=== PATIENT | female | born 1965 | race Caucasian/White ===

== ENCOUNTER 2023-11-11 08:22 | Outpatient (CLI) | payer OTHER, SELFPAY ==
[2023-11-11] VITALS (8 sets, daily range): BP systolic 162–191; BP diastolic 94–110; PULSE 52–62; RESP 10–23; TEMP 36.7; O2SAT 98–100
--- NOTE | 2023-11-11 08:30 | DI.RAD.S_ITS ---
PROCEDURE: PAIN L/S TRANSFORAM INJECT ARNOLDO COMPARISON: None. INDICATIONS: Pain FINDINGS: Intraoperative fluoroscopic spot films were obtained during a L5-S1 bilateral transforaminal epidural injection. Iraan are appropriately positioned as labeled on the films. IMPRESSION: Fluoroscopic guidance Approved by: Que Khalil M.D. on 11/12/2023 at 16:14
[2023-11-11] MEDS: MIDAZOLAM 2 MG/2 ML VIAL 1 MG IV (09:10)
[2023-11-11] MEDS: DEXAMETHASONE 10 MG/ML VIAL 20 MG INJ (09:13)
[2023-11-11] MEDS: iopamidoL 15 ML VIAL 3 ML INJ (09:13)
--- NOTE | 2023-11-11 12:03 | P.PCN_ITS ---
Date/Time/Diagnoses Date of procedure: 11/11/23 Time of procedure: 08:30 Procedure Notes Physician: Hari Butler Total Fluoroscopy time (seconds): 38 Total sedation minutes: 15 Procedure in detail & Post-procedure care: Bilateral L5-S1 Transforaminal Epidural Steroid Injection Indications: Samra is presenting for treatment of lumbar radiculopathy with low back and leg pain. Preoperative diagnosis: Bilateral lumbar radiculopathy Postoperative diagnosis: Same Focused Examination: Ax3 Mood and affect are normal Vital Signs: VSS ASA: 2 Consent: Following review of allergies and potential side effects/complications, including, but not necessarily limited to, infection, allergic reaction, local tissue breakdown, stroke, temporary or permanent nerve injury, paralysis, and possible , the patient indicated that they understood and agreed to proceed.? An informed consent document was signed by the patient, witnessed by a nurse and placed in the patient's chart.? Additionally, other treatment options including medications and physical therapy were reviewed with the patient. All questions were answered. Site was then marked. Anesthesia: After review of previous anesthetic history and IV conscious sedation, the patient was deemed safe to proceed with today's procedure with IV conscious sedation. IV sedation was accomplished with midazolam 1 mg administered by the RN after order by Dr. Butler. Sedation was titrated to patient comfort during the course of the procedure. Patient remained responsive to all verbal commands. Position: Prone Monitoring: NIBP, Pulse oximetry, 3 lead EKG Needle used: 22ga,?5-inch spinal needle Contrast: Isovue 300M Injectate: 10 mg Dexamethasone mixed with 1% lidocaine 1 ml and Normal Saline 1 ml per site Technique: The skin was prepped with chloraprep and draped in a sterile fashion. Time out was performed as per protocol. Oxygen applied via NC. Skin and subcutaneous structures of the needle entry site were infiltrated with 3mL of lidocaine 1%. Under fluoroscopic guidance, using an ipsilateral oblique view,?a 22 gauge 5 inch needle was advanced to the base of the right L5? pedicle.? The needle was advanced to the superio-posterior aspect of the neural foramen under lateral view.? Oblique and AP views were rechecked. No paresthesias noted by the patient during needle placement. In AP view and utilizing real-time digital subtraction fluoroscopy, 2 ml contrast was slowly injected. Epidural spread was observed without evidence for intravascular nor intrathecal uptake. Contrast spread was seen craniocaudally. The above injectate was then administered without paresthesias and the needle was subsequently withdrawn. Skin and subcutaneous structures of the needle entry site were infiltrated with 3mL of lidocaine 1%. Under fluoroscopic guidance, using an ipsilateral oblique view,?a 22 gauge 5 inch needle was advanced to the base of the left L5?pedicle.? The needle was advanced to the superio-posterior aspect of the neural foramen under lateral view.? Oblique and AP views were rechecked. No paresthesias noted by the patient during needle placement. In AP view and utilizing real-time digital subtraction fluoroscopy, 2 ml contrast was slowly injected. There was evidence of possible vascular uptake, likely venous. Needle was repositioned and further contrast injection under digital subtraction was consistent with epidural spread without evidence for intravascular nor intrathecal uptake. The above injectate was then administered without paresthesias and the needle was subsequently withdrawn. Band-Aids applied to injection sites. EBL: less than 1 ml Complications: None Post Procedure: Patient was taken to the recovery and monitored. The patient was provided a Pain Log to continue to record the patient's response to the target- specific procedure prior to the patient's follow-up visit with the referring physician. Patient was stable upon discharge. Detailed post procedure instructions were provided. Patient was asked to call in the event of worsening pain, fever, weakness, numbness or bladder or bowel incontinence.
== END 2023-11-11 09:45 | disposition home or self-care (01) ==
LOC: RAD 08:23
PROVIDERS: PCP Family Medicine; Referring Provider Anesthesiology; Visit Provider Anesthesiology
DX: M54.16 Radiculopathy, lumbar region (principal)
CPT/HCPCS: 64483; 99152; J1100; J2250

== ENCOUNTER 2023-12-09 08:47 | Outpatient (CLI) | payer OTHER, SELFPAY ==
[2023-12-09] VITALS (8 sets, daily range): BP systolic 130–154; BP diastolic 82–93; PULSE 67–76; RESP 11–20; TEMP 36.7; O2SAT 98–100
[2023-12-09] MEDS: MIDAZOLAM 2 MG/2 ML VIAL 1 MG IV (09:30)
--- NOTE | 2023-12-09 09:30 | DI.RAD.S_ITS ---
PROCEDURE: PAIN L INTERLAMINAR/CAUDAL INJ INDICATIONS: Lumbar Radiculopathy COMPARISON: None. FINDINGS: Fluoroscopic spot filming was performed to verify placement of spinal needles at the L5-S1 level(s), as labeled on the films. Appropriate location(s) of the needle tip(s) was confirmed by injection of iodinated contrast. IMPRESSION: Fluoro guidance was provided intraoperatively for L5-S1 interlaminar epidural steroid injection performed by the ordering physician. Dictated by: Chuck Martinez M.D. on 12/09/2023 at 11:34 Approved by: Chuck Martinez M.D. on 12/09/2023 at 11:34
[2023-12-09] MEDS: DEXAMETHASONE 10 MG/ML VIAL INJ (09:33)
[2023-12-09] MEDS: iopamidoL 15 ML VIAL 3 ML INJ (09:34)
--- NOTE | 2023-12-09 12:21 | P.PCN_ITS ---
Date/Time/Diagnoses Date of procedure: 12/09/23 Time of procedure: 09:30 Procedure Notes Physician: Hari Butler Total Fluoroscopy time (seconds): 14 Total sedation minutes: 10 Procedure in detail & Post-procedure care: L5-S1 Interlaminar Epidural Steroid Injection Indications: Samra is presenting for treatment of lumbar radiculopathy with low back and leg pain. Preoperative diagnosis: Lumbar radiculopathy Postoperative diagnosis: Same Focused Examination: Ax3 Mood and affect are normal Vital Signs: VSS ASA: 2 Consent: Following review of allergies and potential side effects/complications, including, but not necessarily limited to, infection, allergic reaction, local tissue breakdown, stroke, temporary or permanent nerve injury, paralysis, and possible , the patient indicated that they understood and agreed to proceed.? An informed consent document was signed by the patient, witnessed by a nurse and placed in the patient's chart.? Additionally, other treatment options including medications and physical therapy were reviewed with the patient. All questions were answered. Site was then marked. Anesthesia: After review of previous anesthetic history and IV conscious sedation, the patient was deemed safe to proceed with today's procedure with IV conscious sedation. IV sedation was accomplished with midazolam 1 mg administered by the RN after order by Dr. Butler. Sedation was titrated to patient comfort during the course of the procedure. Patient remained responsive to all verbal commands. Position: Prone Monitoring: NIBP, Pulse oximetry, 3 lead EKG Needle used: 18 G 3.5? Tuohy Contrast: Isovue 300M Injectate: Dexamethasone 10 mg with 1% lidocaine 2 mL Technique: The skin was prepped with chloraprep and then draped in a sterile fashion. Time out was performed as per protocol. Oxygen applied via NC. Skin and subcutaneous structures of the needle entry site was then infiltrated with 3 mL of lidocaine 1%. Under AP, lateral and contralateral oblique fluoroscopic control, the Tuohy needle was guided into the L5-S1 epidural space. The space was accessed with loss of resistance technique. Isovue 300M was then injected and the spread was consistent with the epidural space. There was no evidence for intravascular or intrathecal uptake. After negative aspiration, the above- mentioned injectate was then slowly administered and the needle withdrawn. The patient expressed no unusual discomfort or paresthesias during the injection. Band-Aids applied to injection sites. EBL: less than 1 ml Complications: None Post Procedure: Patient was taken to the recovery and monitored. The patient was provided a Pain Log to continue to record the patient's response to the target- specific procedure prior to the patient's follow-up visit with the referring physician. Patient was stable upon discharge. Detailed post procedure instructions were provided. Patient was asked to call in the event of worsening pain, fever, weakness, numbness or bladder or bowel incontinence.
== END 2023-12-09 10:00 | disposition home or self-care (01) ==
LOC: RAD 08:48
PROVIDERS: PCP Nurse Practitioner; Referring Provider Anesthesiology; Visit Provider Anesthesiology
DX: M54.16 Radiculopathy, lumbar region (principal)
CPT/HCPCS: 62323; 99152; J1100; J2250

== ENCOUNTER 2025-04-26 11:08 | Outpatient (CLI) | payer OTHER, SELFPAY ==
[2025-04-26 11:20] VITALS: BP 143/81; PULSE 76; RESP 18; TEMP 37; O2SAT 98
[2025-04-26 11:41] VITALS: BP 152/96; PULSE 66; PULSE 70; RESP 12; RESP 122; O2SAT 99
[2025-04-26] MEDS: LIDOCAINE 1% (PF) 5 ML INJ (11:46)
[2025-04-26 11:47] VITALS: BP 136/91; PULSE 68; RESP 15; O2SAT 96
[2025-04-26 11:55] VITALS: BP 160/86; PULSE 74; RESP 18; O2SAT 98
--- NOTE | 2025-04-26 13:03 | PM.PROC.IR.1 ---
Date/Time/Diagnoses Date of procedure: 03/01/25 Time of procedure: 11:30 Pre-procedure diagnosis: Lumbar radiculopathy Post-procedure diagnosis: same Procedure Notes Procedure: Interlaminar epidural steroid injection L3-4 Indications: Lumbar radiculopathy Physician: Elkin Hernandez Total sedation minutes: 0 Complications: none Procedure in detail & Post-procedure care: Patient is here for the planned procedure today as noted. No significant change since the last office visit. For additional clinical scenario please see those office notes. Focused exam: Vital signs reviewed as charted on intake. Gen: Well developed. No acute distress. CV: RRR, no M/R/G Chest: Non-labored breathing, CTAB. Psych: Alert and well-oriented. Mood/Affect: normal. Patient suitable for the planned procedure today: Yes === The following procedure was performed in the office today: Lumbar Epidural Steroid Injection with fluoroscopic guidance - Interlaminar approach (19822) Levels Treated: L3-4 Approach: interlaminar Soft tissue: [1% lidocaine 2 mL] Test dose: [1% lidocaine 1 mL] Injectate: 0.75 mL of Depo-Medrol (80mg/mL) in 1.25 mL 1% lidocaine and 2 mL normal saline Fluoroscopy Agent: Isovue 300-M 1.5 mL Notes: 4.5 in 20 gauge Touhy needle utilized and adequate. Left paramedian approach. Preprocedure pain 3/10, postprocedure pain 2/10. Procedure: After discussing the risks, benefits, and alternatives to the procedure, the patient expressed understanding and wished to proceed. The risks include but are not limited to infection, allergic reaction, nerve damage, stroke, paralysis, epidural hematoma, syncope, headache, respiratory or cardiac arrest, spinal cord injury, and scar formation. Informed consent was obtained and all patient questions were answered. The patient was brought to the procedure suite and placed in the prone position. A pre-procedural pause was conducted to verify: correct patient identity, procedure to be performed and as applicable, correct side and site, correct patient position, and any special requirements. Using a paramedian approach from the side noted above, the region overlying the target was localized under fluoroscopic visualization and the soft tissues overlying this structure were infiltrated with the anesthetic listed above. With fluoroscopic guidance, a #20 gauge Tuohy needle (unless otherwise noted) was inserted into the epidural space using a paramedian approach. The epidural space was localized utilizing intermittent multiplanar fluoroscopic guidance and loss of resistance technique. After negative aspiration, the contrast noted above was injected into the epidural space and the flow of contrast was observed, confirming epidural spread without evidence of intravascular or intrathecal spread. Multi-planar radiographs were obtained for documentation purposes. A test dose of lidocaine was injected into the above noted epidural space, and the patient was observed for 30-60 seconds. No sensory deficits were reported and normal lower extremity motor function was noted. Subsequently, the injectate as noted above was administered into the level noted above. The patient tolerated the procedure well and was discharged after an appropriate period of observation. If there are any complications, the patient was instructed to call us. The patient is to follow-up with the requesting provider in 2-3 weeks. This note was compiled using voice recognition software and therefore may contain typos. Please contact the author with any questions or concerns.
== END 2025-04-26 12:00 | disposition home or self-care (01) ==
PROVIDERS: PCP Nurse Practitioner; Referring Provider Physical Medicine & Rehabilitation; Visit Provider Physical Medicine & Rehabilitation
DX: M54.16 Radiculopathy, lumbar region (principal)
CPT/HCPCS: 62323; J1010

== ENCOUNTER → 2025-05-16 17:11 | Outpatient (CLI) | payer OTHER, SELFPAY ==
--- NOTE | 2025-05-16 17:12 | DI.MRI.S_ITS ---
PROCEDURE: MR LUMBAR SPINE WO CON INDICATIONS: worsening low back pain, radiculopathy TECHNIQUE: Noncontrast sagittal T1 spin echo and T2 fast echo, sagittal STIR, and T2 fast spin echo through the lumbar spine. In cases with scoliosis, additional coronal T2 fast spin echo may be performed. COMPARISON: Outside Film, CT, CT LUMBAR SPINE WITHOUT CONTRAST, 09/14/2023, 11:03. Outside Film, MR, MR LUMBAR SPINE WITHOUT CONTRAST, 08/08/2023, 14:26. Outside Film, CR, XR LUMBAR SPINE 2 OR 3 VIEWS, 03/16/2023, 10:13. FINDINGS: Image quality: Degraded by motion artifact. Alignment and Curvature: 5 lumbar type vertebral bodies are present by plain film. 2 mm of retrolisthesis of L3 on L4. 10 mm of anterolisthesis of L4 on L5. Bone Marrow: Marrow is of normal overall signal. No acute vertebral body compression fractures. Moderate reactive signal within the endplates adjacent to the L4-L5 intervertebral disc. Mild reactive signal within the remaining lumbar and lower thoracic endplates. Spinal Cord: Conus medullaris terminates at the L1 level. Visualized cord demonstrates normal signal and size. Paraspinous Soft Tissues: No paravertebral masses. T12-L1: Severe disc height loss and desiccation. Mild diffuse disc bulge. Mild facet and ligamentum flavum hypertrophy. Mild canal stenosis. Mild bilateral foraminal stenosis. No significant change. L1-L2: Normal appearance. L2-L3: Normal appearance. L3-L4: Moderate disc desiccation. Mild disc height loss and diffuse disc bulge. Mild facet and ligamentum flavum hypertrophy. Mild canal stenosis. Mild bilateral foraminal stenosis. No significant change. L4-L5: Moderate disc desiccation. Mild disc height loss and diffuse disc bulge. Moderate bilateral facet hypertrophy. Severe canal stenosis. Severe bilateral foraminal stenosis with bilateral L4 nerve root compression. No significant change. L5-S1: Mild disc height loss and desiccation. Mild diffuse disc bulge. Mild bilateral facet hypertrophy. Mild canal stenosis. Mild bilateral foraminal stenosis. No significant change. IMPRESSION: 1. Multilevel degenerative disc and facet disease, as well as ligamentum flavum hypertrophy and epidural lipomatosis. 2. Multilevel spondylolisthesis . 3. Multilevel canal stenoses, worst at L4-L5 where there is severe canal stenosis. 4. Multilevel foraminal stenoses, worst at L4-L5 where there is associated intraforaminal nerve root compression. Recommend correlation with clinical symptoms to ascertain relevance of this finding. Dictated by: Hakeem Lira M.D. on 05/17/2025 at 10:17 Approved by: Hakeem Lira M.D. on 05/17/2025 at 10:23
== END ==
LOC: MRI 17:12
PROVIDERS: PCP Nurse Practitioner; Referring Provider Physical Medicine & Rehabilitation; Visit Provider Physical Medicine & Rehabilitation
DX: M48.061 Spinal stenosis, lumbar region without neurogenic claudication (principal); M48.07 Spinal stenosis, lumbosacral region; M51.16 Intervertebral disc disorders with radiculopathy, lumbar region; M51.17 Intervertebral disc disorders with radiculopathy, lumbosacral region; M47.26 Other spondylosis with radiculopathy, lumbar region; M47.27 Other spondylosis with radiculopathy, lumbosacral region; M43.16 Spondylolisthesis, lumbar region
CPT/HCPCS: 72148